=== PATIENT | male | born 1940 | race Caucasian/White ===

== ENCOUNTER 2019-10-04 23:17 | Inpatient (IN) ==
[2019-10-04] MEDS ORDERED: IOPAMIDOL 100 ML BOTTLE IV ONE (23:18)
--- NOTE | 2019-10-05 | Emergency Department Note ---
Syncope HPI - General Chief Complaint: Syncope Stated Complaint: syncope Time Seen by Provider: 10/04/19 23:27 Source: patient Mode of arrival: ambulatory Limitations: no limitations - History of Present Illness HPI Narrative: This 78-year-old male comes in accompanied by his , Karen, who reports that patient was headed to the bathroom and upon's trying to sit down fell forward with his head striking the tile on the floor of the shower in front of the toilet. He was weak and unable to get up from this which is unusual for him. Karen called EMS who transported the patient here. He was seen at [facility] today with a prescription for a decongestant medication. Patient in the emergency room seem to have some memory and conversation dysfunction. See below. REVIEW OF SYSTEMS: No fevers. Did have some chills this morning. No sweatiness. Some sore throat and runny nose that seems to be chronic No chest pain No shortness of breath No abdominal pain, nausea, vomiting No weakness No anxiety or depression. - Related Data Home Medications Medication Instructions Recorded Confirmed digoxin 250 mcg (0.25 mg) tablet 250 mcg PO .QTues, Mary, Sat, Sun 01/28/16 10/04/19 tab warfarin 1 tab PO QDAY 06/16/17 10/04/19 doxazosin 1 mg tablet 1 mg PO QHS tab 03/25/19 10/04/19 loratadine 10 mg tablet 10 mg PO QDAY 05/09/19 10/04/19 Previous Rx's Medication Instructions Recorded furosemide 40 mg tablet 40 mg PO QDAY #90 tab 06/14/16 allopurinol 100 mg tablet 100 mg PO QDAY #90 tab 05/07/19 omeprazole 20 mg capsule,delayed See Rx Instructions .ROUTE 05/07/19 release .COMPLEX #90 capsule diltiazem HCl 120 mg capsule,24 120 mg PO QDAY #90 cap 05/30/19 hr,extended release ropinirole 1 mg tablet 2 mg PO QHS #180 tab 08/23/19 enalapril maleate 20 mg tablet 40 mg PO QDAY #180 tab 09/24/19 [id number] 10 ml PO Q6H PRN #120 ml 10/04/19 2 mg-30 mg-10 mg/5 mL oral syrup fluticasone propionate 50 2 spray INTRANASAL QDAY #15.8 ml 10/04/19 mcg/actuation nasal spray,suspension Allergies Allergy/AdvReac Type Severity Reaction Status Date / Time No Known Drug Intolerances Allergy Unknown N/A Verified 10/04/19 13:09 Past Medical History - Past Medical History [facility] Narrative: Medical History (Last Updated 10/04/19 @ 23:36 by Patricio Briones DO) Long-term (current) use of anticoagulants (Chronic) Atrial fibrillation (Chronic) CHF (congestive heart failure) (Chronic) Ischemic cardiomyopathy (Chronic) CAD (coronary artery disease) (Chronic) Stroke (Chronic) PVD (peripheral vascular disease) (Chronic) Essential hypertension (Chronic) Hyperlipidemia (Chronic) Atherosclerosis (Chronic) Mitral valve disorders (Chronic) Polyuria (Chronic) Arthritis (Chronic) Gout (Chronic) Anemia (Chronic) Gastroesophageal reflux disease (Chronic) Urinary incontinence (Chronic) Rosacea (Chronic 12/23/13) Restless leg syndrome (Chronic) Prostate cancer (Chronic) Osteoarthritis (Chronic) Mitral valve disorders (Chronic) Inguinal hernia (Chronic) Hearing loss (Chronic) Goiter (Chronic) Edema (Chronic) Cataract (Chronic) Colloid thyroid nodule (Chronic) Anterior epistaxis (Resolved) Epistaxis (Resolved) Gout attack (Resolved) Night sweats (Resolved) Postural vertigo (Resolved) Shoulder pain, right (Resolved) Skin Lesion (Resolved) Supratherapeutic INR (Resolved) Warfarin-induced coagulopathy (Resolved) AC (acromioclavicular) arthritis (Inactive) Arthritis of shoulder region, right, degenerative (Inactive) Onychomycosis (Inactive 12/23/13) Seborrheic keratosis (Inactive) Past Surgical History (Last Reviewed 10/04/19 @ 13:51 by Henry Palmer PA-C) H/O inguinal hernia repair (Resolved) H/O mitral valve replacement (Resolved) H/O radical prostatectomy (Resolved) History of appendectomy (Resolved) History of colonoscopy (Resolved 02/05/13) History of excision of lesion (Resolved) History of tonsillectomy (Resolved) S/P CABG x 2 (Resolved) S/P thyroid biopsy (Resolved) Status post mitral valve annuloplasty (Resolved) Status post surgery (Resolved) Family History (Last Reviewed 10/04/19 @ 13:51 by Henry Palmer PA-C) Father Cardiac disease Mother Essential hypertension Unknown Chronic Kidney Disease Sister Malignant neoplasm of ovary Brother Malignant neoplasm of prostate Son Schizophrenia Medical history: Reports: atrial fibrillation, chronic anticoagulation, other (Anticoagulant use, arthrosclerosis, atrial fibrillation, cardiomyopathy, cataract, CHF, CAD, edema, epistaxis, goiter, hearing loss, inguinal hernia, hyperlipidemia, essential hypertension, mitral valve disorders, muscle spasm, onychomycosis, history of gastritis, PVD, prostate cancer, restless leg syndrome, rosacea, stroke, urinary incontinence, GERD, gout, anemia. ). Denies: DVT, DM, hypothyroidism, myocardial infarction, pulmonary embolus, renal disease Surgical history ED: Reports: other (recurrent procedures for epistaxis) - Social History smoking status: Never smoker Alcohol use: Reports: None Drug use: Reports: none. Denies: marijuana Physical Exam Limitations: no limitations General appearance: alert, in no apparent distress Head: normocephalic, other (Some small superficial but red abrasions around the face.) Eye: Present: PERRL, EOMI ENT: Present: normal exam, mucous membranes moist Neck: Present: trachea midline. Absent: lymphadenopathy, thyromegaly Chest: Present: symmetric chest wall rise Respiratory: Present: normal lung sounds bilaterally. Absent: respiratory distress, wheezes, stridor, accessory muscle use, prolonged expiratory phase Cardiovascular: Present: regular rate, normal rhythm. Absent: systolic murmur, diastolic murmur Abdominal: Present: soft. Absent: distention, tenderness, guarding, rebound, rigidity, organomegaly, mass Extremities: Absent: pedal edema, pretibial edema, calf tenderness Back: Absent: CVA tenderness (R), CVA tenderness (L), spinous process tenderness Neurological: Present: alert Patient oriented to: Present: person, place. Absent: time Speech: Present: other (Slowed and sometimes hesitating quite a bit before responding.) Cranial nerves: EOM function (II, III, IV, ): Normal, facial sensation (V): Normal, facial palsy (VII): Normal, tongue deviation (XII): Normal Cerebellar function: finger to nose: Normal, heel to shen: Normal Motor strength - LUE: 4/5 Motor strength - RUE: 4/5 Motor strength - LLE: 4/5 Motor strength - RLE: 4/5 Course Vital Signs Temperature 100.9 F H 10/04/19 23:17 Pulse Rate 83 10/04/19 23:17 Respiratory Rate 18 10/04/19 23:17 Pulse Oximetry (%) 93 10/04/19 23:17 Temperature 100.9 F H 10/04/19 23:17 Pulse Rate 83 10/04/19 23:17 Respiratory Rate 18 10/04/19 23:17 Pulse Oximetry (%) 93 10/04/19 23:17 Syncope - [facility] Narrative Medical decision making narrative: 11:35 PM - patient with a fall and on Coumadin. Necessitates work-up with labs and CT scan of the head. Because of some changes in apparent mental status a larger work-up in order. For example he times did not seem to be able to know the year, had slow recall of his address, did not remember his birthdate, could spell world forwards but not at all backwards and normally he would be able to do these things quite well according to his . She also believes he has been breathing a little faster these past few days. 12:16 AM - creatinine 1.6. His normal is 1.1, 1.2. We will proceed with CT angios of head and neck since the CT scan of his head was negative for intracranial bleed or injury. Specific gravity came back at 1.030 a few minutes after the above confirming some mild dehydration. 1:00 AM approximately - chest x-ray with enlarged (very) heart but there may be some rotation versus a perihilar dense pneumonia. 1:35 AM - white count 14.5 which is higher than usual for him. Hemoglobin 13.3 which is a mild anemia and new for him. INR is 2.0. Lactic acid 1.8. Sodium a little low at 130. Creatinine 1.6 with BUN 25 is higher than usual for him. Sodium is 130 which is also new. 2:01 AM - spoke with Dr. Vance, hospitalist, who kindly accepts this patient. I will write transition orders. I spoke with regarding patient's wishes for end-of-life care or if there were needing aggressive interventions to resuscitate or intervene and she reports that he does not want this. She is not certain of paperwork available. Patient is hard enough of hearing that it is difficult to communicate with him completely unwell plus he is sleeping well at this point in time so not further discussed but will list his wishes as DNR for now. - Lab Data Result diagrams: 10/04/19 23:43 10/04/19 23:43 Lab Results 10/04/19 10/04/19 10/04/19 Range/Units 23:43 23:43 23:43 WBC 14.5 H (4.50-11.00) K/mcL RBC 4.56 L (4.63-6.08) M/mcL Hgb 13.3 L (13.7-17.5) g/dL Hct 40.3 (40.1-51.0) % POC Hct (41.0-55.0) % MCV 88.4 (80.0-100.0) fL MCH 29.2 (26.0-34.0) pg MCHC 33.0 (31.0-36.0) g/dL RDW 13.9 (11.5-14.5) % Plt Count 175 (140-440) K/mcL MPV 10.8 H (7.4-10.4) fL Gran % 89.7 H (38.0-78.0) % Lymph % (Auto) 4.2 L (15.5-49.0) % [place] % (Auto) 5.4 (1.0-12.0) % Eos % (Auto) 0.3 (0.0-7.0) % Baso % (Auto) 0.4 (0.0-2.0) % Gran # 12.96 H (1.80-8.00) K/mcL Lymph # (Auto) 0.61 L (1.50-4.80) K/mcL [place] # (Auto) 0.78 (0.10-0.90) K/mcL Eos # (Auto) 0.04 (0.00-0.70) K/mcL Baso # (Auto) 0.06 (0.00-0.30) K/mcL POC PT (11.9-14.5) sec PT (11.9-14.5) sec POC INR (0.9-1.2) INR (0.9-1.1) VBG Lactic Acid 1.8 (0.5-2.0) mmol/L POC Sodium (133-145) mmol/L Sodium 130 L (133-145) mmol/L POC Potassium (3.3-5.1) mmol/L Potassium 4.2 (3.3-5.1) mmol/L POC Chloride (96-108) mmol/L Chloride 95 L (96-108) mmol/L Carbon Dioxide 21 L (22-30) mmol/L POC Total CO2 (22-30) mmol/L Anion Gap 14.0 (8-16) POC BUN (8-23) mg/dl BUN 25 H (8-23) mg/dl Creatinine 1.6 H (0.7-1.2) mg/dl POC Creatinine (0.7-1.2) mg/dl GFR Calculation 40 Glucose 130 H (70-105) mg/dL POC Glucose (70-105) mg/dL Calcium 8.3 L (8.6-10.4) mg/dl POC WB Ioniz Calcium (1.16-1.32) mmol/L Magnesium 1.6 (1.6-2.5) mg/dL Total Bilirubin 0.8 (0.0-1.0) mg/dL AST 13 (0-37) U/l ALT 8 (0-40) U/l Alkaline Phosphatase 95 (39-117) U/L C-Reactive Protein 5.7 H (0.0-0.8) mg/dl Total Protein 6.7 (5.9-8.4) gm/dL Albumin 4.1 (3.2-5.2) gm/dL Globulin 2.6 (2.2-3.7) gm/dL Albumin/Globulin Ratio 1.6 (1.0-2.3) Urine Color Urine Appearance Urine pH (5.0-9.0) Ur Specific Gideon (1.000-1.035) Urine Protein (NEG) mg/dL Urine Glucose (UA) (NEG) mg/dL Urine Ketones (NEG) mg/dL Urine Occult Blood (<0.03) mg/dL Urine Nitrate (NEG) Urine Bilirubin (NEG) mg/dL Urine Urobilinogen (NEG) mg/dL Ur Leukocyte Esterase (NEG) /uL Urine RBC (0-1) /hpf Urine WBC (0-4) /hpf Ur Squamous Epith Cells (0-4) /hpf Urine Bacteria (0) /hpf Hyaline Casts (0-2) /lpf Urine Mucus (0) /hpf Digoxin Dose Digox Last Dose Time 10/04/19 10/04/19 10/04/19 Range/Units 23:43 23:43 23:52 WBC (4.50-11.00) K/mcL RBC (4.63-6.08) M/mcL Hgb (13.7-17.5) g/dL Hct (40.1-51.0) % POC Hct (41.0-55.0) % MCV (80.0-100.0) fL MCH (26.0-34.0) pg MCHC (31.0-36.0) g/dL RDW (11.5-14.5) % Plt Count (140-440) K/mcL MPV (7.4-10.4) fL Gran % (38.0-78.0) % Lymph % (Auto) (15.5-49.0) % [place] % (Auto) (1.0-12.0) % Eos % (Auto) (0.0-7.0) % Baso % (Auto) (0.0-2.0) % Gran # (1.80-8.00) K/mcL Lymph # (Auto) (1.50-4.80) K/mcL [place] # (Auto) (0.10-0.90) K/mcL Eos # (Auto) (0.00-0.70) K/mcL Baso # (Auto) (0.00-0.30) K/mcL POC PT 28.9 H (11.9-14.5) sec PT 22.4 H (11.9-14.5) sec POC INR 2.5 H (0.9-1.2) INR 2.0 H (0.9-1.1) VBG Lactic Acid (0.5-2.0) mmol/L POC Sodium (133-145) mmol/L Sodium (133-145) mmol/L POC Potassium (3.3-5.1) mmol/L Potassium (3.3-5.1) mmol/L POC Chloride (96-108) mmol/L Chloride (96-108) mmol/L Carbon Dioxide (22-30) mmol/L POC Total CO2 (22-30) mmol/L Anion Gap (8-16) POC BUN (8-23) mg/dl BUN (8-23) mg/dl Creatinine (0.7-1.2) mg/dl POC Creatinine (0.7-1.2) mg/dl GFR Calculation Glucose (70-105) mg/dL POC Glucose (70-105) mg/dL Calcium (8.6-10.4) mg/dl POC WB Ioniz Calcium (1.16-1.32) mmol/L Magnesium (1.6-2.5) mg/dL Total Bilirubin (0.0-1.0) mg/dL AST (0-37) U/l ALT (0-40) U/l Alkaline Phosphatase (39-117) U/L C-Reactive Protein (0.0-0.8) mg/dl Total Protein (5.9-8.4) gm/dL Albumin (3.2-5.2) gm/dL Globulin (2.2-3.7) gm/dL Albumin/Globulin Ratio (1.0-2.3) Urine Color Urine Appearance Urine pH (5.0-9.0) Ur Specific Gideon (1.000-1.035) Urine Protein (NEG) mg/dL Urine Glucose (UA) (NEG) mg/dL Urine Ketones (NEG) mg/dL Urine Occult Blood (<0.03) mg/dL Urine Nitrate (NEG) Urine Bilirubin (NEG) mg/dL Urine Urobilinogen (NEG) mg/dL Ur Leukocyte Esterase (NEG) /uL Urine RBC (0-1) /hpf Urine WBC (0-4) /hpf Ur Squamous Epith Cells (0-4) /hpf Urine Bacteria (0) /hpf Hyaline Casts (0-2) /lpf Urine Mucus (0) /hpf Digoxin Dose Not Reportable Digox Last Dose Time Not Reportable 10/04/19 10/05/19 Range/Units 23:59 00:18 WBC (4.50-11.00) K/mcL RBC (4.63-6.08) M/mcL Hgb (13.7-17.5) g/dL Hct (40.1-51.0) % POC Hct 40.0 L (41.0-55.0) % MCV (80.0-100.0) fL MCH (26.0-34.0) pg MCHC (31.0-36.0) g/dL RDW (11.5-14.5) % Plt Count (140-440) K/mcL MPV (7.4-10.4) fL Gran % (38.0-78.0) % Lymph % (Auto) (15.5-49.0) % [place] % (Auto) (1.0-12.0) % Eos % (Auto) (0.0-7.0) % Baso % (Auto) (0.0-2.0) % Gran # (1.80-8.00) K/mcL Lymph # (Auto) (1.50-4.80) K/mcL [place] # (Auto) (0.10-0.90) K/mcL Eos # (Auto) (0.00-0.70) K/mcL Baso # (Auto) (0.00-0.30) K/mcL POC PT (11.9-14.5) sec PT (11.9-14.5) sec POC INR (0.9-1.2) INR (0.9-1.1) VBG Lactic Acid (0.5-2.0) mmol/L POC Sodium 133 (133-145) mmol/L Sodium (133-145) mmol/L POC Potassium 4.5 (3.3-5.1) mmol/L Potassium (3.3-5.1) mmol/L POC Chloride 101 (96-108) mmol/L Chloride (96-108) mmol/L Carbon Dioxide (22-30) mmol/L POC Total CO2 22 (22-30) mmol/L Anion Gap (8-16) POC BUN 26 H (8-23) mg/dl BUN (8-23) mg/dl Creatinine (0.7-1.2) mg/dl POC Creatinine 1.6 H (0.7-1.2) mg/dl GFR Calculation Glucose (70-105) mg/dL POC Glucose 122 H (70-105) mg/dL Calcium (8.6-10.4) mg/dl POC WB Ioniz Calcium 1.06 L (1.16-1.32) mmol/L Magnesium (1.6-2.5) mg/dL Total Bilirubin (0.0-1.0) mg/dL AST (0-37) U/l ALT (0-40) U/l Alkaline Phosphatase (39-117) U/L C-Reactive Protein (0.0-0.8) mg/dl Total Protein (5.9-8.4) gm/dL Albumin (3.2-5.2) gm/dL Globulin (2.2-3.7) gm/dL Albumin/Globulin Ratio (1.0-2.3) Urine Color Yellow Urine Appearance Clear Urine pH 5.0 (5.0-9.0) Ur Specific Gideon 1.015 (1.000-1.035) Urine Protein Neg (NEG) mg/dL Urine Glucose (UA) Negative (NEG) mg/dL Urine Ketones Neg (NEG) mg/dL Urine Occult Blood Neg (<0.03) mg/dL Urine Nitrate Neg (NEG) Urine Bilirubin Neg (NEG) mg/dL Urine Urobilinogen Neg (NEG) mg/dL Ur Leukocyte Esterase Neg (NEG) /uL Urine RBC 1 (0-1) /hpf Urine WBC < 1 (0-4) /hpf Ur Squamous Epith Cells 0 (0-4) /hpf Urine Bacteria 0 (0) /hpf Hyaline Casts 31 H (0-2) /lpf Urine Mucus Mod (0) /hpf Digoxin Dose Digox Last Dose Time Disposition Pt seen by CONTINUOUS IMPROVEMENT FACILITATOR/PA only: No Clinical Impression: Hypoxia, Abnormal chest x-ray, Abrasion, face w/o infection, Ventricular bige stefania Fever Qualifiers: Fever type: unspecified Qualified Code(s): R50.9 - Fever, unspecified Leukocytosis Qualifiers: Leukocytosis type: leukemoid reaction Qualified Code(s): D72.823 - Leukemoid reaction Fall Qualifiers: Encounter type: initial encounter Qualified Code(s): W19.XXXA - Unspecified fall, initial encounter Atrial fibrillation Qualifiers: Atrial fibrillation type: longstanding persistent Qualified Code(s): I48.11 - Longstanding persistent atrial fibrillation Disposition: Xfer As Inpt ([facility]) Condition: Fair Referrals: Jarvis Miramontes MD, FAAFP [Primary Care Provider] -
[2019-10-05 00:11] LABS: POC INR 2.5 (0.9-1.2); POC Pro Time 28.9 sec (11.9-14.5)
[2019-10-05 00:12] LABS: POC Blood Urea Nitrogen 26 mg/dl (8-23); POC CO2 22 mmol/L (22-30); POC Calcium, Ionized 1.06 mmol/L (1.16-1.32); POC Chloride 101 mmol/L (96-108); POC Creatinine 1.6 mg/dl (0.7-1.2); POC Glucose, Random 122 mg/dL (70-105); POC Potassium 4.5 mmol/L (3.3-5.1); POC Sodium 133 mmol/L (133-145)
[2019-10-05 01:10] LABS: Appearance,Urine CLEAR; Bacteria,Urine 0 /hpf (0); Bilirubin,Urine NEG (NEG); Color,Urine YELLOW; Glucose,Urine (UA) NEGATIVE (NEG); Ketones,Urine NEG (NEG); Leukocyte Esterase,Urine NEG /uL (NEG); Mucus,Urine MOD /hpf (0); Nitrate,Urine NEG (NEG); Protein,Urine NEG (NEG); Specific Gravity,Urine 1.015 (1.000-1.035); Urine Blood NEG mg/dL (<0.03); Urine Hyaline Cast 31 /lpf (0-2); Urine RBC 1 /hpf (0-1); Urine Squamous Epithelial Cell 0 /hpf (0-4); Urine WBC < 1 /hpf (0-4); Urobilinogen,Urine NEG (NEG)
[2019-10-05 01:16] LABS: Basophils # (Auto) 0.06 K/mcL (0.00-0.30); Basophils % (Auto) 0.4 % (0.0-2.0); Eosinophils # (Auto) 0.04 K/mcL (0.00-0.70); Eosinophils % (Auto) 0.3 % (0.0-7.0); Granulocytes % (Auto) 89.7 % (38.0-78.0); Hematocrit 40.3 % (40.1-51.0); Hemoglobin 13.3 g/dL (13.7-17.5); Lymphocytes # (Auto) 0.61 K/mcL (1.50-4.80); Lymphocytes % (Auto) 4.2 % (15.5-49.0); Mean Cell Volume 88.4 fL (80.0-100.0); Mean Platelet Volume 10.8 fL (7.4-10.4); Monocytes # (Auto) 0.78 K/mcL (0.10-0.90); Monocytes % (Auto) 5.4 % (1.0-12.0); Platelet Count 175 K/mcL (140-440); Prothrombin Time 22.4 sec (11.9-14.5); RBC 4.56 M/mcL (4.63-6.08); Red Cell Distribution Width 13.9 % (11.5-14.5); WBC 14.5 K/mcL (4.50-11.00)
[2019-10-05 01:26] LABS: ALT/SGPT 8 U/l (0-40); AST/SGOT 13 U/l (0-37); Albumin 4.1 gm/dL (3.2-5.2); Albumin/Globulin Ratio 1.6 (1.0-2.3); Alkaline Phosphatase 95 U/L (39-117); Bilirubin,Total 0.8 mg/dL (0.0-1.0); Blood Urea Nitrogen 25 mg/dl (8-23); C-Reactive Protein 5.7 mg/dl (0.0-0.8); Calcium 8.3 mg/dl (8.6-10.4); Carbon Dioxide 21 mmol/L (22-30); Chloride 95 mmol/L (96-108); Globulin 2.6 gm/dL (2.2-3.7); Glomerular Filtration Rate 40; Glucose 130 mg/dL (70-105)
[2019-10-05] MEDS ORDERED: ONDANSETRON 4 MG/2 ML VIAL IV PRN ×4 (01:57→22:32)
[2019-10-05] MEDS ORDERED: 0.9 % SODIUM CHLORIDE 1,000 ML IV SCH ×2 (02:00→08:34)
[2019-10-05] MEDS ORDERED: cefTRIAXone 2 GM in DEXTROSE 5% IN WATER 50 ML IV ONE (02:02)
[2019-10-05] MEDS ORDERED: AZITHROMYCIN 500 MG in DEXTROSE 5% IN WATER 250 ML IV ONE (02:02)
[2019-10-05] MEDS ORDERED: cefTRIAXone 2 GM VIAL ONE (03:06)
--- NOTE | 2019-10-05 04:12 | XRay Report ---
CLINICAL INFORMATION: syncope COMPARISON: None. FINDINGS: Moderate cardiomegaly with left atrial enlargement and mitral annuloplasty again noted. Heart has increased in size from previous exam. Mediastinum is unremarkable. Upper lobe pulmonary vessels are mildly distended but there is no interstitial edema. Lungs are clear. No effusions IMPRESSION: Mild CHF Interpreted and Authenticated by: Jamshid Hilliard 10/05/19
--- NOTE | 2019-10-05 04:21 | Cat Scan Report ---
CLINICAL INFORMATION: On anticoagulation - trauma fall COMPARISON: None. TECHNIQUE: 2.5 mm helical slices were obtained in the skull base to vertex. Following reconstruction, axial reformatted images were reviewed at bone and parenchymal windows. The exam was performed using radiation dose optimization techniques including, but not limited to, automated exposure control, adjustment of the mA and/or kV according to patient size and use of iterative reconstruction technique. FINDINGS: The ventricles, sulci, fissures, and cisterns are symmetrically enlarged compatible with expected mild age-related atrophy. No extra-axial fluid collections are identified. Patchy age-related chronic ischemic changes in the cerebral white matter appreciated. The cerebrum, brainstem and cerebellum are, otherwise, unremarkable. There is no evidence of hemorrhage, mass effect, or edema. Bone windows show no osseous abnormality. IMPRESSION: Mild atrophy and patchy age-related chronic ischemic changes in the deep cerebral white matter. There is no intracerebral hemorrhage or other posttraumatic change. Interpreted and Authenticated by: Jamshid Hilliard 10/05/19
--- NOTE | 2019-10-05 06:20 | Cat Scan Report ---
CLINICAL INFORMATION: Trauma COMPARISON: None. TECHNIQUE: 80 cc of Isovue-370 were injected intravenously, and using SmartPrep to maximize arterial opacification, 0.625 mm helical slices were obtained from the thoracic aortic arch through the galena of [place]. Following reconstruction, 2.5mm sagittal, coronal and axial reformatted images were processed and reviewed at standard and bone algorithm/window. 3-D volume rendered, CPR and MIP images were processed using a [employer] work station.The exam was performed using radiation dose optimization techniques including, but not limited to, automated exposure control, adjustment of the mA and/or kV according to patient size and use of iterative reconstruction technique. Note: Exam quality is poor due to left arm injection and extrinsic compression of the left brachycephalic vein between the head of the clavicle and thoracic aortic arch. Nearly entire contrast bolus refluxes into the left jugular and thoracic veins rather than filling the superior vena cava and right heart. There is no arterial opacification. FINDINGS: The diameter and contour of the thoracic aortic arch brachycephalic common internal and external carotid vertebral arteries are normal, but there are nonopacified, thus stenosis or occlusion cannot be assessed with this particular study. Soft tissues show mild thyroid enlargement with inhomogeneity compatible with thyroid goiter. No other soft tissue abnormality. IMPRESSION: 1. Thoracic aortic arch brachycephalic carotid and vertebral artery are normal in diameter and contour. Lack of arterial contrast precludes ability to assess for occlusion or stenosis. The exam can be repeated with the right arm injection. Interpreted and Authenticated by: Jamshid Hilliard 10/05/19
--- NOTE | 2019-10-05 06:21 | Cat Scan Report ---
CLINICAL INFORMATION: Trauma decreased mental status. COMPARISON: None. TECHNIQUE: 80 cc of Isovue-370 were injected intravenously , and using SmartPrep to maximize cerebral arterial opacification, 0.625 mm helical slices were obtained from the skull base through the cerebral vertex. Following reconstruction , sagittal, coronal and axial reformatted images were processed and reviewed at multiple windows and levels. 3D volume rendered and MIP images were acquired at a independent workstation. The exam was performed using radiation dose optimization techniques including, but not limited to, automated exposure control, adjustment of the mA and/or kV according to patient size and use of iterative reconstruction technique. Very poor arterial bolus is noted due to left arm injection and extrinsic compression of the left brachycephalic vein between the medial clavicle and thoracic aortic arch. Consider repeating the exam with right arm injection. FINDINGS: The intracerebral arterial vasculature is only faintly opacified. The intracranial internal carotid vertebral basilar anterior middle and posterior areas cerebral arteries are grossly normal. IMPRESSION: Suboptimal quality exam no gross abnormality. Consider repeat study with right arm injection Interpreted and Authenticated by: Jamshid Hilliard 10/05/19
[2019-10-05] MEDS ORDERED: OMEPRAZOLE 20 MG CAPSULE PO SCH (07:30)
[2019-10-05] MEDS: ACETAMINOPHEN 325 MG TABLET PO PRN ×2 (08:04→16:57)
[2019-10-05] MEDS ORDERED: hydrALAZINE 20 MG/ML VIAL IV PRN ×2 (08:30→22:32)
[2019-10-05] MEDS ORDERED: ACETAMINOPHEN 650 MG/65 ML BOTTLE IV PRN ×2 (08:30→22:32)
[2019-10-05] MEDS ORDERED: MELATONIN 3 MG TABLET PO PRN ×2 (08:30→22:32)
[2019-10-05] MEDS ORDERED: POLYETHYLENE GLYCOL 3350 17 GM PACKET PO PRN ×2 (08:30→22:32)
[2019-10-05] MEDS ORDERED: METOPROLOL TARTRATE 5 MG/5 ML VIAL IV PRN ×2 (08:30→22:32)
[2019-10-05] MEDS ORDERED: BISACODYL 10 MG SUPP.RECT PR PRN ×2 (08:30→22:32)
[2019-10-05] MEDS ORDERED: POTASSIUM CHLORIDE 20 MEQ PACKET PO PRN ×2 (08:30→22:32)
[2019-10-05] MEDS ORDERED: MAGNESIUM SULFATE 2 GM/50 ML BAG IV PRN ×2 (08:30→22:32)
[2019-10-05] MEDS ORDERED: ACETAMINOPHEN 325 MG TABLET PO PRN ×3 (08:30→22:32)
[2019-10-05] MEDS ORDERED: ONDANSETRON 4 MG ODT TABLET SL PRN ×2 (08:30→22:32)
--- NOTE | 2019-10-05 08:40 | Internal Med History&Physical ---
Medical - H&P: HPI Patient information: Note initiated : 10/05/19 at 8:36 am Service Date, if different from initiated Date: [] Patient: Gian Orozco a 78 y/o M admitted on 10/05/19 for syncope. Chief Complaint: [] Chief complaint: Weakness fatigue loss of consciousness History of present illness: Mr. Orozco is a 78 year old M with a known history of CABGsMVR/A. fib who was in his baseline state of health until 3 days prior to presentation patient started noticing increasing weakness fatigue, sore throat and upper respiratory symptoms. He was evaluated at the urgent care and was discharged after supportive treatment. Patient symptoms continue to deteriorate. His heard him falling in the bathroom and discovered him in a near unconscious state. He was subsequently brought into the ER. Initial work-up was unremarkable CT angiogram head neck but consistent with elevated white count fever and possible pneumonia. Chest x-ray consistent with CHF Hospitalist service was consulted At the time evaluation patient is alert and oriented. He was able to answer most the question. Karen is at bedside. She was able to provide a detailed history. Patient is hard of hearing. He endorses to malaise/mild headache fatigue and lethargic. He further endorses to diarrhea but denies chest pain, cough. He denies lightheadedness. He further denies changes in medication or sick contact. Review of systems A 10 point review system was performed and is negative except for ones cussed above Medical - H&P: PMH Medical history: Shoulder pain, right (Resolved) Arthritis (Chronic) Gout attack (Chronic) Supratherapeutic INR (Resolved) Anterior epistaxis (Resolved) Warfarin-induced coagulopathy (Chronic) Encounter for removal of nasal packing (Resolved) Arthritis of shoulder region, right, degenerative (Chronic) AC (acromioclavicular) arthritis (Chronic) Gout (Chronic) Postural vertigo (Chronic) occasional Anemia (Chronic) H/O Skin Lesion (Chronic) recurring left upper lip lesion Gastroesophageal reflux disease (Chronic) Urinary incontinence (Chronic) Secondary to prostatectomy Stroke (Chronic) Remote Rosacea (Chronic 12/23/13) Restless leg syndrome (Chronic) Prostate cancer (Chronic) Remote. PSA <0.03 PVD (peripheral vascular disease) (Chronic) Osteoarthritis (Chronic) Onychomycosis (Chronic 12/23/13) Muscle spasm (Chronic) paracervical musculature Mitral valve disorders (Chronic) Essential hypertension (Chronic) Hyperlipidemia (Chronic) Inguinal hernia (Chronic) Asymptomatic left inguinal hernia. Previous surgery for right inguinal hernia. Hearing loss (Chronic) Goiter (Chronic) History of goiter. Right hemithyroid is quite prominent. Epistaxis (Chronic) resolved after cauterization Edema (Chronic) mild CAD (coronary artery disease) (Chronic) CABG 2006 CHF (congestive heart failure) (Chronic) Stable at present Cataract (Chronic) Cardiomyopathy (Chronic) ischemic Atrial fibrillation (Chronic) Atherosclerosis (Chronic) (01/23/2015-Atherosclerotic plaque) Long-term (current) use of anticoagulants (Chronic) Colloid thyroid nodule (Chronic) 10/15/2018 FNA Surgical History H/O inguinal hernia repair (Resolved) 04/28 right H/O mitral valve replacement (Resolved) H/O radical prostatectomy (Resolved) 2009 History of appendectomy (Resolved) History of colonoscopy (Resolved 02/05/13) Consult Findings: Colonic polyp; Micro: Polypoid portion of colonic mucosa with hyperplastic surface changes-10 year follow up. History of excision of lesion (Resolved) Rt cheek lesion History of tonsillectomy (Resolved) S/P CABG x 2 (Resolved) S/P thyroid biopsy (Resolved) Status post mitral valve annuloplasty (Resolved) Previous mitral valve ring annuloplasty Status post surgery (Resolved) Ankle surgery Family History Father , at age 86 Cardiac disease Mother , at age 88 Essential hypertension Unknown Chronic Kidney Disease Sister Malignant neoplasm of ovary Brother Malignant neoplasm of prostate Son Schizophrenia sons x2 Social History marital status: occupational status: retired occupation: Teacher other: Children-4 smoking status: Never smoker alcohol intake frequency: former alcohol drinker Medical - H&P: Meds Home Medications Medication Instructions Recorded Confirmed Type digoxin 250 mcg (0.25 mg) tablet 250 mcg PO .QTues, Mary, Sat, Sun 01/28/16 10/04/19 History tab furosemide 40 mg tablet 40 mg PO QDAY #90 tab 06/14/16 10/04/19 Rx warfarin 1 tab PO QDAY 06/16/17 10/04/19 History doxazosin 1 mg tablet 1 mg PO QHS tab 03/25/19 10/04/19 History allopurinol 100 mg tablet 100 mg PO QDAY #90 tab 05/07/19 10/04/19 Rx omeprazole 20 mg capsule,delayed See Rx Instructions .ROUTE 05/07/19 10/04/19 Rx release .COMPLEX #90 capsule loratadine 10 mg tablet 10 mg PO QDAY 05/09/19 10/04/19 History diltiazem HCl 120 mg capsule,24 120 mg PO QDAY #90 cap 05/30/19 10/04/19 Rx hr,extended release ropinirole 1 mg tablet 2 mg PO QHS #180 tab 08/23/19 10/04/19 Rx enalapril maleate 20 mg tablet 40 mg PO QDAY #180 tab 09/24/19 10/04/19 Rx gbpznteqirpndfr-gqfincubimszotu-RR 10 ml PO Q6H PRN #120 ml 10/04/19 10/04/19 Rx 2 mg-30 mg-10 mg/5 mL oral syrup fluticasone propionate 50 2 spray INTRANASAL QDAY #15.8 ml 10/04/19 10/04/19 Rx mcg/actuation nasal spray,suspension Allergies Allergy/AdvReac Type Severity Reaction Status Date / Time No Known Drug Intolerances Allergy Unknown N/A Verified 10/04/19 13:09 Medical - H&P: Exam - Constitutional Vitals: Temp Pulse Resp BP Pulse Ox 102.4 F H 73 46 H 127/61 91 10/05/19 08:04 10/05/19 08:00 10/05/19 08:00 10/05/19 08:00 10/05/19 08:00 General appearance: no acute distress Exam: Alert oriented Head normocephalic, forehead abrasion from fall Oral cavity dry no ear nose discharge Neck lymphadenopathy S1-S2 irregular rhythm, pansystolic murmur grade 2 Diminished breath sounds bases Abdomen soft nontender lower extremity no cyanosis clubbing no joint swelling Skin no suspicious lesion psych alert cooperative Neuro nonfocal Medical - H&P: Reslt - Labs CBC & Chem 7: 10/04/19 23:43 10/04/19 23:43 Labs: Short CBC 10/04/19 Range/Units 23:43 WBC 14.5 H (4.50-11.00) K/mcL Hgb 13.3 L (13.7-17.5) g/dL Hct 40.3 (40.1-51.0) % Plt Count 175 (140-440) K/mcL BMP 10/04/19 23:43 Sodium 130 L Potassium 4.2 Chloride 95 L Carbon Dioxide 21 L BUN 25 H Creatinine 1.6 H Glucose 130 H Calcium 8.3 L Liver Function 10/04/19 Range/Units 23:43 Total Bilirubin 0.8 (0.0-1.0) mg/dL AST 13 (0-37) U/l ALT 8 (0-40) U/l Alkaline Phosphatase 95 (39-117) U/L Albumin 4.1 (3.2-5.2) gm/dL Urine 10/05/19 Range/Units 00:18 Urine Color Yellow Urine Appearance Clear Urine pH 5.0 (5.0-9.0) Ur Specific [place] 1.015 (1.000-1.035) Urine Protein Neg (NEG) mg/dL Urine Glucose (UA) Negative (NEG) mg/dL Medical - H&P: A/P (1) Acute decompensated heart failure Current visit: Yes Status: Acute * Sepsis secondary to acute acquired pneumonia, white count 14,000. Continue antibiotic coverage/management per guidelines. Check respiratory panel * Lrruroaxm-vbkjvnkdh-gkcvjcvk, pancultures, antibiotic coverage/supplemental oxygen bronchodilators. Check viral respiratory panel * Acute decompensated heart failure, diastolic dysfunction secondary underlying A. fib, evident on imaging, initiate diuresis * Diarrhea-check stool C. difficile * History atrial fibrillation currently rate controlled. Continue digoxin/diltiazem * Hypertension continue ARB/diltiazem * Restless leg syndrome continue ropinirole * Anticoagulation on Coumadin daily dosing based on INR * History of gout continue allopurinol * GERD continue PPI * DNR * Prophylaxis anticoagulated Plan * Inpatient telemetry admit, anticipate minimum 2 midnight hospitalization * Antibiotic coverage * Viral respiratory panel * Echocardiogram/diuresis * Stool C. difficile * Pre-existing well condition management on home medications * PT OT * Nutrition support Medical - H&P: Qual - VTE Deep Vein Thrombosis/Pulmonary Embolism Present on Admission: No
[2019-10-05] MEDS ORDERED: THIAMINE 100 MG TABLET PO SCH (09:00)
[2019-10-05] MEDS ORDERED: FOLIC ACID 1 MG TABLET PO SCH (09:00)
[2019-10-05] MEDS ORDERED: ALLOPURINOL 100 MG TABLET PO SCH (09:00)
[2019-10-05] MEDS ORDERED: FLUTICASONE PROPIONATE SPRAY.NAS NS PRN ×2 (09:00→22:32)
[2019-10-05] MEDS ORDERED: LISINOPRIL 20 MG TABLET PO SCH (09:00)
[2019-10-05] MEDS ORDERED: DILTIAZEM 120 MG CAP.XL.24H PO SCH (09:00)
[2019-10-05] MEDS ORDERED: LORATADINE 10 MG TABLET PO SCH (09:00)
[2019-10-05] MEDS ORDERED: MULTIVIT,THER IRON,CA,FA & MIN 1 TABLET PO SCH (09:00)
[2019-10-05] MEDS: DOCUSATE SODIUM 100 MG CAPSULE PO SCH ×2 (09:57→20:02)
[2019-10-05] MEDS: HEPARIN 5,000 UNIT/ML VIAL SQ SCH ×2 (09:59→20:02)
--- NOTE | 2019-10-05 11:15 | Ultrasound Report ---
CLINICAL INFORMATION: Syncope COMPARISON: None. TECHNIQUE: Spectral Doppler velocity measurements were obtained in the proximal, mid and distal common and internal carotid, both vertebral and proximal external carotid arteries bilaterally. Supplemental color and power Doppler imaging was also obtained to optimize stenosis detection. In reporting, any internal carotid stenosis was indirectly quantified comparing the distal internal carotid velocity. For ratio comparison, the internal carotid artery, at the level of stenosis, was utilized in the numerator and the normal distal internal carotid artery velocity was utilized as the denominator. Velocities are validated with angiographic measurements extrapolated from diameter data - as defined by the Society of Radiologists in Ultrasound Consensus Conference .Radiology 2003; 229; 340 - 346. FINDINGS: See worksheet by the technologist for velocities in PACS IMPRESSION: The right common, internal and external carotid arteries are widely patent. 50-70% stenosis of the proximal left internal carotid artery. The left common and external carotid arteries are widely patent. Antegrade flow present in both vertebral arteries Please correlate with CTA CT Angiography or MRA MR Angiography if surgery is contemplated. Interpreted and Authenticated by: Jamshid Hilliard 10/05/19
[2019-10-05 11:19] LABS: INR 2.1 (0.9-1.1); Prothrombin Time 23.1 sec (11.9-14.5)
[2019-10-05] MEDS: 0.9 % SODIUM CHLORIDE 10 ML SYRINGE IV SCH ×2 (13:45→20:02)
[2019-10-05] MEDS ORDERED: WARFARIN 1 MG TABLET PO ONE (14:00)
[2019-10-05] MEDS ORDERED: DIGOXIN 125 MCG TABLET PO SCH (14:00)
[2019-10-05] MEDS ORDERED: FUROSEMIDE 40 MG/4 ML VIAL IV SCH (16:00)
[2019-10-05] MEDS ORDERED: cefTRIAXone 2 GM in DEXTROSE 5% IN WATER 50 ML IV SCH (18:00)
[2019-10-05] MEDS ORDERED: AZITHROMYCIN 500 MG in DEXTROSE 5% IN WATER 250 ML IV SCH (19:00)
[2019-10-05] MEDS ORDERED: rOPINIRole 1 MG TABLET PO SCH (21:00)
[2019-10-05] MEDS ORDERED: SENNOSIDES/DOCUSATE SODIUM 1 TAB TABLET PO SCH (21:00)
[2019-10-05] MEDS ORDERED: DOXAZOSIN 1 MG TABLET PO SCH (21:00)
[2019-10-05] MEDS ORDERED: 0.9 % SODIUM CHLORIDE 1,000 ML IV ONE ×3 (22:01→22:32)
[2019-10-05] MEDS ORDERED: LACTATED RINGERS 1,000 ML IV SCH (22:15)
[2019-10-05] MEDS ORDERED: NOREPINEPHRINE BITARTRATE 16 MG in 0.9 % SODIUM CHLORIDE 234 ML IV SCH (22:32)
[2019-10-05] MEDS ORDERED: ATROPINE SULFATE 1 MG/10 ML SYRINGE IV ONE (22:32)
[2019-10-05] MEDS ORDERED: NOREPINEPHRINE BITARTRATE 4 MG/4 ML VIAL IV ONE (22:47)
[2019-10-05 23:41] LABS: Basophils # (Auto) 0.06 K/mcL (0.00-0.30); Basophils % (Auto) 0.5 % (0.0-2.0); Eosinophils # (Auto) 0.02 K/mcL (0.00-0.70); Eosinophils % (Auto) 0.2 % (0.0-7.0); Granulocytes % (Auto) 85.4 % (38.0-78.0); Hematocrit 39.3 % (40.1-51.0); Hemoglobin 12.9 g/dL (13.7-17.5); Lymphocytes # (Auto) 1.01 K/mcL (1.50-4.80); Lymphocytes % (Auto) 7.7 % (15.5-49.0); Mean Cell Volume 89.9 fL (80.0-100.0); Mean Corpuscular HGB Conc 32.8 g/dL (31.0-36.0); Mean Platelet Volume 10.4 fL (7.4-10.4); Monocytes # (Auto) 0.82 K/mcL (0.10-0.90); Monocytes % (Auto) 6.2 % (1.0-12.0); Platelet Count 159 K/mcL (140-440); RBC 4.37 M/mcL (4.63-6.08); Red Cell Distribution Width 14.1 % (11.5-14.5); WBC 13.2 K/mcL (4.50-11.00)
[2019-10-06 00:04] LABS: ALT/SGPT 12 U/l (0-40); AST/SGOT 31 U/l (0-37); Albumin 3.3 gm/dL (3.2-5.2); Albumin/Globulin Ratio 1.2 (1.0-2.3); Alkaline Phosphatase 82 U/L (39-117); Bilirubin,Direct < 0.2 mg/dL (0.0-0.3); Bilirubin,Total 0.3 mg/dL (0.0-1.0); Blood Urea Nitrogen 30 mg/dl (8-23); Calcium 7.8 mg/dl (8.6-10.4); Carbon Dioxide 20 mmol/L (22-30); Chloride 96 mmol/L (96-108); Globulin 2.8 gm/dL (2.2-3.7); Glomerular Filtration Rate 29; Glucose 134 mg/dL (70-105); Lactate Dehydrogenase 196 U/L (94-250); Phosphorous 3.9 mg/dL (2.7-4.5); Triglycerides 96 mg/dl (<150)
[2019-10-06] MEDS: LACTATED RINGERS 1,000 ML IV SCH ×4 (00:31→22:07)
[2019-10-06 06:24] LABS: Hematocrit 38.1 % (40.1-51.0); Hemoglobin 12.4 g/dL (13.7-17.5); Mean Cell Volume 89.9 fL (80.0-100.0); Mean Corpuscular HGB Conc 32.5 g/dL (31.0-36.0); Mean Platelet Volume 10.8 fL (7.4-10.4); Platelet Count 150 K/mcL (140-440); RBC 4.24 M/mcL (4.63-6.08); Red Cell Distribution Width 14.1 % (11.5-14.5); WBC 9.7 K/mcL (4.50-11.00)
[2019-10-06 06:48] LABS: INR 2.3 (0.9-1.1); Prothrombin Time 24.8 sec (11.9-14.5)
[2019-10-06 07:07] LABS: ALT/SGPT 11 U/l (0-40); AST/SGOT 29 U/l (0-37); Albumin 2.9 gm/dL (3.2-5.2); Alkaline Phosphatase 75 U/L (39-117); Bilirubin,Direct < 0.2 mg/dL (0.0-0.3); Bilirubin,Total 0.3 mg/dL (0.0-1.0); Blood Urea Nitrogen 30 mg/dl (8-23); Calcium 7.4 mg/dl (8.6-10.4); Carbon Dioxide 18 mmol/L (22-30); Chloride 101 mmol/L (96-108); Globulin 2.9 gm/dL (2.2-3.7); Glomerular Filtration Rate 37; Glucose 99 mg/dL (70-105); Lactate Dehydrogenase 223 U/L (94-250); Phosphorous 3.4 mg/dL (2.7-4.5); Triglycerides 102 mg/dl (<150); Uric Acid 6.9 mg/dL (2.5-8.0)
[2019-10-06] MEDS: 0.9 % SODIUM CHLORIDE 250 ML IV SCH ×3 (07:23→20:41)
[2019-10-06] MEDS: 0.9 % SODIUM CHLORIDE 10 ML SYRINGE IV SCH ×3 (07:24→20:39)
[2019-10-06] MEDS ORDERED: OMEPRAZOLE 20 MG CAPSULE PO SCH (07:30)
[2019-10-06 08:15] LABS: Band Neutrophils % 7 % (0-10); Basophils % (Manual) 2 % (0-2); Lymphocytes % 14 % (15-49); Monocytes % (Manual) 5 % (1-12); Platelet Estimate NORMAL (NORMAL); RBC Morphology NORMAL (NORMAL); Segmented Neutrophils % 72 % (38-78)
[2019-10-06] MEDS ORDERED: cefTRIAXone 2 GM in DEXTROSE 5% IN WATER 50 ML IV SCH (09:00)
[2019-10-06] MEDS ORDERED: HEPARIN 5,000 UNIT/ML VIAL SQ SCH ×2 (09:00→21:00)
[2019-10-06] MEDS ORDERED: LORATADINE 10 MG TABLET PO SCH (09:00)
[2019-10-06] MEDS ORDERED: THIAMINE 100 MG TABLET PO SCH (09:00)
[2019-10-06] MEDS ORDERED: MULTIVIT,THER IRON,CA,FA & MIN 1 TABLET PO SCH (09:00)
[2019-10-06] MEDS ORDERED: DILTIAZEM 120 MG CAP.XL.24H PO SCH (09:00)
[2019-10-06] MEDS ORDERED: LISINOPRIL 20 MG TABLET PO SCH (09:00)
[2019-10-06] MEDS ORDERED: ALLOPURINOL 100 MG TABLET PO SCH (09:00)
[2019-10-06] MEDS ORDERED: FOLIC ACID 1 MG TABLET PO SCH (09:00)
[2019-10-06] MEDS ORDERED: DOCUSATE SODIUM 100 MG CAPSULE PO SCH (09:00)
[2019-10-06] MEDS ORDERED: AZITHROMYCIN 500 MG in DEXTROSE 5% IN WATER 250 ML IV SCH (10:00)
--- NOTE | 2019-10-06 10:42 | Internal Med Progress Note ---
Medical - PN: Subj Patient information: Note initiated : 10/06/19 at 10:40 am Service Date, if different from initiated Date: [] Patient: Gian Orozco a 78 y/o M admitted on 10/05/19 for syncope. Chief Complaint: [] Interval history: Mr. Orozco is a 78 year old M with a known history of CABGsMVR/A. fib who was in his baseline state of health until 3 days prior to presentation patient started noticing increasing weakness fatigue, sore throat and upper respiratory symptoms. He was evaluated at the urgent care and was discharged after supportive treatment. Patient symptoms continue to deteriorate. His heard him falling in the bathroom and discovered him in a near unconscious state. He was subsequently brought into the ER. Initial work-up was unremarkable CT angiogram head neck but consistent with elevated white count fever and possible pneumonia. Chest x-ray consistent with CHF Hospitalist service was consulted At the time evaluation patient is alert and oriented. He was able to answer mo st the question. Karen is at bedside. She was able to provide a detailed history. Patient is hard of hearing. He endorses to malaise/mild headache fatigue and lethargic. He further endorses to diarrhea but denies chest pain, cough. He denies lightheadedness. He further denies changes in medication or sick contact. Addendum Responded to nurse call with patient fatigue lethargic. Heart rate mid 30s with blood pressure systolic 78. Multiple episodes of watery stool. Patient lethargic but denies chest pain diaphoresis. 10/06-patient responded remarkably well to crystalloid challenge. Systolics around 120. Off pressors. Heart rate around mid 60s. Diltiazem held. Check digoxin level, improved creatinine level, sodium 133, INR 2.3, white count down from 14.5-9.7 - Constitutional Vitals: Vital Signs Temp Pulse Resp BP Pulse Ox 98 F 81 38 H 117/96 91 10/06/19 08:01 10/06/19 08:01 10/05/19 22:07 10/06/19 08:01 10/06/19 08:01 Period Temp Pulse Resp BP Sys/Diggs Pulse Ox Last 24 Hr 98 F-100.9 F 51-81 38-46 74-150/48-96 85-98 Intake and Output 10/05/19 10/06/19 10/06/19 21:59 05:59 13:59 Intake Total 240 1999 1240 Output Total 270 20 Balance 240 1730 1220 Weight 210 lb 1 oz Intake & Output: Intake & Output 10/05/19 10/06/19 10/06/19 21:59 05:59 13:59 Intake Total 240 1999 1240 Output Total 270 20 Balance 240 1730 1220 Weight 210 lb 1 oz Intake: IV 1999 1000 Sodium Chloride 0.9% 1,000 ml @ 2000 Wide Open IV [facility] Rx#: [id number] Lactated Ringers 1,000 ml @ 150 1000 mls/hr IV .[id number] [facility] Rx#: [id number] Oral 240 240 Output: Urine Catheter Amount 270 20 Other: Meal Lunch Percent of Meal Consumed 50% Urine Appearance Clear Clear Uretheral ([place]) Clear Urine Color Dark Yellow Bright Yellow Uretheral ([place]) Bright Yellow Urine Odor Normal Stool Size Moderate Small Stool Color Brown Brown Green Yellow Stool Consistency Liquid Liquid # Voids 1 # of times incontinent of 1 Bowels General appearance: no acute distress Exam: Alert oriented nonlabored breathing No anxiety Telemetry A. fib/bradycardia with PVCs Nondistended abdomen Medical - PN: Obj Da - Labs CBC & Chem 7: 10/06/19 04:33 10/06/19 04:33 Labs: Abnormal Lab Results 10/06/19 10/06/19 10/06/19 04:33 04:33 04:33 WBC RBC 4.24 L Hgb 12.4 L Hct 38.1 L POC Hct MPV 10.8 H Gran % Lymph % (Auto) Gran # Lymph # (Auto) Lymphocytes % 14 L POC PT PT 24.8 H POC INR INR 2.3 H Sodium Chloride Carbon Dioxide 18 L POC BUN BUN 30 H Creatinine 1.7 H POC Creatinine Glucose POC Glucose Calcium 7.4 L POC WB Ioniz Calcium C-Reactive Protein Total Protein 5.8 L Albumin 2.9 L Hyaline Casts 10/05/19 10/05/19 10/05/19 22:58 22:58 09:55 WBC 13.2 H RBC 4.37 L Hgb 12.9 L Hct 39.3 L POC Hct MPV Gran % 85.4 H Lymph % (Auto) 7.7 L Gran # 11.24 H Lymph # (Auto) 1.01 L Lymphocytes % POC PT PT 23.1 H POC INR INR 2.1 H Sodium 131 L Chloride Carbon Dioxide 20 L POC BUN BUN 30 H Creatinine 2.1 H POC Creatinine Glucose 134 H POC Glucose Calcium 7.8 L POC WB Ioniz Calcium C-Reactive Protein Total Protein Albumin Hyaline Casts 10/05/19 10/04/19 10/04/19 00:18 23:59 23:52 WBC RBC Hgb Hct POC Hct 40.0 L MPV Gran % Lymph % (Auto) Gran # Lymph # (Auto) Lymphocytes % POC PT 28.9 H PT POC INR 2.5 H INR Sodium Chloride Carbon Dioxide POC BUN 26 H BUN Creatinine POC Creatinine 1.6 H Glucose POC Glucose 122 H Calcium POC WB Ioniz Calcium 1.06 L C-Reactive Protein Total Protein Albumin Hyaline Casts 31 H 10/04/19 10/04/19 10/04/19 23:43 23:43 23:43 WBC 14.5 H RBC 4.56 L Hgb 13.3 L Hct POC Hct MPV 10.8 H Gran % 89.7 H Lymph % (Auto) 4.2 L Gran # 12.96 H Lymph # (Auto) 0.61 L Lymphocytes % POC PT PT 22.4 H POC INR INR 2.0 H Sodium 130 L Chloride 95 L Carbon Dioxide 21 L POC BUN BUN 25 H Creatinine 1.6 H POC Creatinine Glucose 130 H POC Glucose Calcium 8.3 L POC WB Ioniz Calcium C-Reactive Protein 5.7 H Total Protein Albumin Hyaline Casts Meds: Medications Acetaminophen (Tylenol) 650 mg PO Q4-6HP PRN; Protocol PRN Reason: Per Pain Protocol/Fever > 101 Allopurinol (Zyloprim) 100 mg PO QDAY [facility] Last Admin: 10/06/19 09:47 Dose: 100 mg Documented by: Bisacodyl (Dulcolax) 10 mg MN Q2-3DAYS PRN PRN Reason: Constipation Digoxin (Lanoxin) 250 mcg PO SuTuThSa@1400 [facility] Diltiazem HCl (Cardizem Cd) 120 mg PO DAILY [facility] Last Admin: 10/06/19 09:39 Dose: Not Given Documented by: Docusate Sodium (Colace) 100 mg PO BID [facility] Last Admin: 10/06/19 09:47 Dose: 100 mg Documented by: Doxazosin Mesylate (Cardura) 1 mg PO QHS [facility] Fluticasone Propionate (Flonase) 2 spray NS DAILYP PRN PRN Reason: ALLERGIES Folic Acid (Folic Acid) 1 mg PO DAILY [facility] Last Admin: 10/06/19 09:48 Dose: 1 mg Documented by: Heparin Sodium (Porcine) (Heparin) 5,000 unit SQ Q12 [facility] Last Admin: 10/06/19 09:47 Dose: 5,000 unit Documented by: Hydralazine HCl (Apresoline) 10 mg IV Q4-6HP PRN PRN Reason: Hypertension Azithromycin 500 mg/ Dextrose 250 mls @ 250 mls/hr IV Q24H [facility]; Protocol Stop: 10/07/19 10:59 Last Admin: 10/06/19 09:48 Dose: 250 mls/hr Documented by: Ceftriaxone Sodium 2 gm/ (Dextrose) 50 mls @ 100 mls/hr IV Q24H [facility]; Protocol Last Admin: 10/06/19 09:00 Dose: 100 mls/hr Documented by: Lactated Ringer's (Lactated Ringers) 1,000 mls @ 150 mls/hr IV .Q6H40M [facility] Last Admin: 10/06/19 07:21 Dose: 150 mls/hr Documented by: Magnesium Sulfate (Magnesium Sulfate) 2 gm in 50 mls @ 50 mls/hr IV UD PRN PRN Reason: MG = or < 1.7 Acetaminophen (Ofirmev) 650 mg in 65 mls @ 130 mls/hr IV Q6HP PRN; Protocol PRN Reason: Per Pain Protocol/Fever > 101 Sodium Chloride (Sodium Chloride 0.9%) 250 mls @ 20 mls/hr IV .[id number] [facility] Last Admin: 10/06/19 10:06 Dose: Not Given Documented by: Norepinephrine Bitartrate 16 (mg/ Sodium Chloride) 250 mls @ 9.375 mls/hr IV Q24HP PRN; Protocol PRN Reason: Hypotension Iron Carb/Multivit/[place]/Folic Acid (Multivitamin W/Minerals) 1 tab PO DAILY [facility] Last Admin: 10/06/19 09:48 Dose: 1 tab Documented by: Lisinopril (Zestril) 40 mg PO QDAY [facility] Last Admin: 10/06/19 09:47 Dose: 40 mg Documented by: Loratadine (Claritin) 10 mg PO QDAY [facility] Last Admin: 10/06/19 10:05 Dose: 10 mg Documented by: Melatonin (Melatonin 3mg Tablet) 3 mg PO HSP PRN PRN Reason: Insomnia Metoprolol Tartrate (Lopressor) 5 mg IV Q5M PRN PRN Reason: Heart Rate > 140 bpm Omeprazole (Prilosec) 20 mg PO QAMAC [facility] Last Admin: 10/06/19 09:47 Dose: 20 mg Documented by: Ondansetron HCl (Zofran Odt) 4 mg SL Q4-6HP PRN; Protocol PRN Reason: Nausea And Vomiting Ondansetron HCl (Zofran) 4 mg IV Q4-6HP PRN; Protocol PRN Reason: Nausea And Vomiting Polyethylene Glycol (Miralax) 17 gm PO DAILYP PRN PRN Reason: Constipation Potassium Chloride (Klor-Con) 40 meq PO DAILYP PRN PRN Reason: K+ < 3.5 Ropinirole HCl (Requip) 2 mg PO QHS [facility] Senna/Docusate Sodium (Senna Plus Tablet) 1 tab PO [facility] Sodium Chloride (Saline Flush) 10 ml IV Q8 [facility] Last Admin: 10/06/19 07:24 Dose: 10 ml Documented by: Thiamine HCl (Vitamin B1) 100 mg PO DAILY [facility] Last Admin: 10/06/19 09:48 Dose: 100 mg Documented by: Warfarin Sodium (Coumadin Per Pharmacy) 1 order PO UD [facility] Medical - PN: A/P - Time Spent With Patient Total time spent is greater than 50% in coordination of care (as documented) at patient's floor/unit and/or counseling patient: 25 - 35 minutes (1) Acute decompensated heart failure Status: Acute Assessment and plan: * Hypovolemic shock- Responded well to crystalloids. Off pressors continue close monitoring.. * Sepsis secondary to acute acquired pneumonia, white count 14,000 down to 9000. Continue antibiotic coverage * Khftjhvim-lqsstrsdp-dakmlhkm, pancultures, antibiotic coverage/supplemental oxygen bronchodilators. Await serologies * Acute decompensated heart failure, diastolic dysfunction secondary underlying A. fib, evident on imaging. Improved * Diarrhea-C. difficile negative * Bradycardia with underlying A. fib. Check digoxin level. Hold diltiazem. * Hypertension -hold antihypertensives * Restless leg syndrome continue ropinirole * Anticoagulation on Coumadin daily dosing based on INR. Therapeutic at 2.3 * History of gout continue allopurinol * GERD continue PPI * DNR * Prophylaxis anticoagulated Plan * Continue antibiotic coverage * Await serologies * Echocardiogram * Crystalloids * Prior medical condition management home meds * Coumadin dosing based on INR * PT OT/Nutrition support * Discharge planning Current Visit: Yes Medical - PN: Qual - VTE Deep Vein Thrombosis/Pulmonary Embolism Present on Admission: No
[2019-10-06] MEDS ORDERED: NOREPINEPHRINE BITARTRATE 16 MG in 0.9 % SODIUM CHLORIDE 234 ML IV PRN (10:45)
[2019-10-06] MEDS ORDERED: DIGOXIN 125 MCG TABLET PO SCH (14:00)
[2019-10-06] MEDS ORDERED: MELATONIN 3 MG TABLET PO PRN (19:54)
[2019-10-06] MEDS ORDERED: hydrALAZINE 20 MG/ML VIAL IV PRN (19:54)
[2019-10-06] MEDS ORDERED: BISACODYL 10 MG SUPP.RECT PR PRN (19:54)
[2019-10-06] MEDS ORDERED: FLUTICASONE PROPIONATE SPRAY.NAS NS PRN (19:54)
[2019-10-06] MEDS ORDERED: MAGNESIUM SULFATE 2 GM/50 ML BAG IV PRN (19:54)
[2019-10-06] MEDS ORDERED: METOPROLOL TARTRATE 5 MG/5 ML VIAL IV PRN (19:54)
[2019-10-06] MEDS ORDERED: POLYETHYLENE GLYCOL 3350 17 GM PACKET PO PRN (19:54)
[2019-10-06] MEDS ORDERED: ONDANSETRON 4 MG/2 ML VIAL IV PRN (19:54)
[2019-10-06] MEDS ORDERED: ACETAMINOPHEN 650 MG/65 ML BOTTLE IV PRN (19:54)
[2019-10-06] MEDS ORDERED: ONDANSETRON 4 MG ODT TABLET SL PRN (19:54)
[2019-10-06] MEDS ORDERED: ACETAMINOPHEN 325 MG TABLET PO PRN (19:54)
[2019-10-06] MEDS ORDERED: POTASSIUM CHLORIDE 20 MEQ PACKET PO PRN (19:54)
[2019-10-06] MEDS: DOXAZOSIN 1 MG TABLET PO SCH (20:38)
[2019-10-06] MEDS: DOCUSATE SODIUM 100 MG CAPSULE PO SCH (20:39)
[2019-10-06] MEDS: SENNOSIDES/DOCUSATE SODIUM 1 TAB TABLET PO SCH (20:39)
[2019-10-06] MEDS: rOPINIRole 1 MG TABLET PO SCH (20:39)
[2019-10-06] MEDS ORDERED: DOXAZOSIN 1 MG TABLET PO SCH (21:00)
[2019-10-06] MEDS ORDERED: WARFARIN 1 MG TABLET PO ONE (21:00)
[2019-10-06] MEDS ORDERED: rOPINIRole 1 MG TABLET PO SCH (21:00)
[2019-10-06] MEDS ORDERED: SENNOSIDES/DOCUSATE SODIUM 1 TAB TABLET PO SCH (21:00)
[2019-10-07] MEDS: 0.9 % SODIUM CHLORIDE 10 ML SYRINGE IV SCH ×2 (04:45→15:00)
[2019-10-07] MEDS: LACTATED RINGERS 1,000 ML IV SCH ×3 (04:45→12:46)
[2019-10-07] MEDS: OMEPRAZOLE 20 MG CAPSULE PO SCH (06:51)
[2019-10-07 07:04] LABS: INR 1.9 (0.9-1.1)
[2019-10-07] MEDS: 0.9 % SODIUM CHLORIDE 250 ML IV SCH ×2 (07:15→20:28)
[2019-10-07 07:19] LABS: Hematocrit 37.6 % (40.1-51.0); Hemoglobin 12.3 g/dL (13.7-17.5); Mean Cell Volume 88.7 fL (80.0-100.0); Mean Corpuscular HGB Conc 32.7 g/dL (31.0-36.0); Platelet Count 129 K/mcL (140-440); RBC 4.24 M/mcL (4.63-6.08); WBC 6.2 K/mcL (4.50-11.00)
[2019-10-07 07:23] LABS: ALT/SGPT 13 U/l (0-40); AST/SGOT 28 U/l (0-37); Albumin 3.2 gm/dL (3.2-5.2); Albumin/Globulin Ratio 1.3 (1.0-2.3); Alkaline Phosphatase 71 U/L (39-117); Bilirubin,Direct < 0.2 mg/dL (0.0-0.3); Bilirubin,Total 0.3 mg/dL (0.0-1.0); Chloride 103 mmol/L (96-108); Globulin 2.4 gm/dL (2.2-3.7); Glucose 87 mg/dL (70-105); Lactate Dehydrogenase 200 U/L (94-250); Triglycerides 130 mg/dl (<150); Uric Acid 6.8 mg/dL (2.5-8.0)
[2019-10-07 07:32] LABS: Blood Urea Nitrogen 21 mg/dl (8-23); Carbon Dioxide 22 mmol/L (22-30); Glomerular Filtration Rate 63; Phosphorous 2.1 mg/dL (2.7-4.5)
[2019-10-07] MEDS: MULTIVIT,THER IRON,CA,FA & MIN 1 TABLET PO SCH (09:30)
[2019-10-07] MEDS: THIAMINE 100 MG TABLET PO SCH (09:30)
[2019-10-07] MEDS: ALLOPURINOL 100 MG TABLET PO SCH (09:30)
[2019-10-07] MEDS: DILTIAZEM 120 MG CAP.XL.24H PO SCH (09:31)
[2019-10-07] MEDS: cefTRIAXone 2 GM in DEXTROSE 5% IN WATER 50 ML IV SCH (09:31)
[2019-10-07] MEDS: LORATADINE 10 MG TABLET PO SCH (09:31)
[2019-10-07] MEDS: LISINOPRIL 20 MG TABLET PO SCH (09:31)
[2019-10-07] MEDS: DOCUSATE SODIUM 100 MG CAPSULE PO SCH ×2 (09:31→20:29)
[2019-10-07] MEDS: FOLIC ACID 1 MG TABLET PO SCH (09:31)
[2019-10-07 09:40] LABS: Eosinophils % (Manual) 9 % (0-7); Lymphocytes % 24 % (15-49); Monocytes % (Manual) 9 % (1-12); Platelet Estimate DECREASED (NORMAL); RBC Morphology NORMAL (NORMAL); Segmented Neutrophils % 58 % (38-78)
--- NOTE | 2019-10-07 09:52 | Internal Med Progress Note ---
Medical - PN: Subj Patient information: Note initiated : 10/07/19 at 9:48 am Service Date, if different from initiated Date: [] Patient: Gian Orozco a 78 y/o M admitted on 10/05/19 for syncope. Chief Complaint: [] Interval history: Mr. Orozco is a 78 year old M with a known history of CABGsMVR/A. fib who was in his baseline state of health until 3 days prior to presentation patient started noticing increasing weakness fatigue, sore throat and upper respiratory symptoms. He was evaluated at the urgent care and was discharged after supportive treatment. Patient symptoms continue to deteriorate. His heard him falling in the bathroom and discovered him in a near unconscious state. He was subsequently brought into the ER. Initial work-up was unremarkable CT angiogram head neck but consistent with elevated white count fever and possible pneumonia. Chest x-ray consistent with CHF Hospitalist service was consulted At the time evaluation patient is alert and oriented. He was able to answer mos t the question. Karen is at bedside. She was able to provide a detailed history. Patient is hard of hearing. He endorses to malaise/mild headache fatigue and lethargic. He further endorses to diarrhea but denies chest pain, cough. He denies lightheadedness. He further denies changes in medication or sick contact. Addendum Responded to nurse call with patient fatigue lethargic. Heart rate mid 30s with blood pressure systolic 78. Multiple episodes of watery stool. Patient lethargic but denies chest pain diaphoresis. 10/06-patient responded remarkably well to crystalloid challenge. Systolics around 120. Off pressors. Heart rate around mid 60s. Diltiazem held. Check digoxin level, improved creatinine level, sodium 133, INR 2.3, white count down from 14.5-9.7 10/07-patient clinically improved. White count down to 6.2. Diarrhea much improved. Son at bedside. Able to ambulate. Denies dizziness lightheadedness, INR 1.9, sodium improved to 138, creatinine down to 1.1 from 2.1. Continue existing treatment and possible discharge in 24 hours - Constitutional Vitals: Vital Signs Temp Pulse Resp BP Pulse Ox 98.3 F 71 18 162/62 95 10/07/19 08:06 10/07/19 08:06 10/07/19 08:06 10/07/19 08:06 10/07/19 08:06 Period Temp Pulse Resp BP Sys/Diggs Pulse Ox Last 24 Hr 97.2 F-98.3 F 66-104 125-162/56-124 95-99 Intake and Output 10/06/19 10/07/19 10/07/19 21:59 05:59 13:59 Intake Total 1240 995 Output Total 1950 Balance -710 995 Weight 219 lb Intake & Output: Intake & Output 10/06/19 10/07/19 10/07/19 21:59 05:59 13:59 Intake Total 1240 995 Output Total 1950 Balance -710 995 Weight 219 lb Intake: IV 1000 995 Lactated Ringers 1,000 ml @ 150 1000 995 mls/hr IV .Q6H40M [facility] Rx#: [id number] Oral 240 Output: Urine Catheter Amount 1950 Other: Urine Appearance Clear Uretheral (Gooden) Clear Urine Color Dark Yellow Uretheral (Gooden) Bright Yellow Urine Odor Normal Stool Size Moderate Stool Color Brown Stool Consistency Soft Loose # of times incontinent of 1 Bowels General appearance: no acute distress Exam: Alert oriented nonlabored breathing Nondistended abdomen No anxiety No lymphedema Medical - PN: Obj Da - Labs CBC & Chem 7: 10/07/19 05:00 10/07/19 05:00 Labs: Abnormal Lab Results 10/07/19 10/07/19 10/07/19 05:00 05:00 05:00 WBC RBC 4.24 L Hgb 12.3 L Hct 37.6 L POC Hct Plt Count 129 L MPV 11.0 H Gran % Lymph % (Auto) Gran # Lymph # (Auto) Lymphocytes % Eosinophils % (Manual) 9 H Platelet Estimate Decreased A POC PT PT 22.0 H POC INR INR 1.9 H Sodium Chloride Carbon Dioxide POC BUN BUN Creatinine POC Creatinine Glucose POC Glucose Calcium 8.0 L POC WB Ioniz Calcium Phosphorus 2.1 L C-Reactive Protein Total Protein 5.6 L Albumin Hyaline Casts 10/06/19 10/06/19 10/06/19 04:33 04:33 04:33 WBC RBC 4.24 L Hgb 12.4 L Hct 38.1 L POC Hct Plt Count MPV 10.8 H Gran % Lymph % (Auto) Gran # Lymph # (Auto) Lymphocytes % 14 L Eosinophils % (Manual) Platelet Estimate POC PT PT 24.8 H POC INR INR 2.3 H Sodium Chloride Carbon Dioxide 18 L POC BUN BUN 30 H Creatinine 1.7 H POC Creatinine Glucose POC Glucose Calcium 7.4 L POC WB Ioniz Calcium Phosphorus C-Reactive Protein Total Protein 5.8 L Albumin 2.9 L Hyaline Casts 10/05/19 10/05/19 10/05/19 22:58 22:58 09:55 WBC 13.2 H RBC 4.37 L Hgb 12.9 L Hct 39.3 L POC Hct Plt Count MPV Gran % 85.4 H Lymph % (Auto) 7.7 L Gran # 11.24 H Lymph # (Auto) 1.01 L Lymphocytes % Eosinophils % (Manual) Platelet Estimate POC PT PT 23.1 H POC INR INR 2.1 H Sodium 131 L Chloride Carbon Dioxide 20 L POC BUN BUN 30 H Creatinine 2.1 H POC Creatinine Glucose 134 H POC Glucose Calcium 7.8 L POC WB Ioniz Calcium Phosphorus C-Reactive Protein Total Protein Albumin Hyaline Casts 10/05/19 10/04/19 10/04/19 00:18 23:59 23:52 WBC RBC Hgb Hct POC Hct 40.0 L Plt Count MPV Gran % Lymph % (Auto) Gran # Lymph # (Auto) Lymphocytes % Eosinophils % (Manual) Platelet Estimate POC PT 28.9 H PT POC INR 2.5 H INR Sodium Chloride Carbon Dioxide POC BUN 26 H BUN Creatinine POC Creatinine 1.6 H Glucose POC Glucose 122 H Calcium POC WB Ioniz Calcium 1.06 L Phosphorus C-Reactive Protein Total Protein Albumin Hyaline Casts 31 H 10/04/19 10/04/19 10/04/19 23:43 23:43 23:43 WBC 14.5 H RBC 4.56 L Hgb 13.3 L Hct POC Hct Plt Count MPV 10.8 H Gran % 89.7 H Lymph % (Auto) 4.2 L Gran # 12.96 H Lymph # (Auto) 0.61 L Lymphocytes % Eosinophils % (Manual) Platelet Estimate POC PT PT 22.4 H POC INR INR 2.0 H Sodium 130 L Chloride 95 L Carbon Dioxide 21 L POC BUN BUN 25 H Creatinine 1.6 H POC Creatinine Glucose 130 H POC Glucose Calcium 8.3 L POC WB Ioniz Calcium Phosphorus C-Reactive Protein 5.7 H Total Protein Albumin Hyaline Casts Meds: Medications Acetaminophen (Tylenol) 650 mg PO Q4-6HP PRN; Protocol PRN Reason: Per Pain Protocol/Fever > 101 Allopurinol (Zyloprim) 100 mg PO QDAY [facility] Last Admin: 10/07/19 09:30 Dose: 100 mg Documented by: Bisacodyl (Dulcolax) 10 mg TN Q2-3DAYS PRN PRN Reason: Constipation Digoxin (Lanoxin) 250 mcg PO SuTuThSa@1400 [facility] Diltiazem HCl (Cardizem Cd) 120 mg PO DAILY [facility] Last Admin: 10/07/19 09:31 Dose: 120 mg Documented by: Docusate Sodium (Colace) 100 mg PO BID [facility] Last Admin: 10/07/19 09:31 Dose: Not Given Documented by: Doxazosin Mesylate (Cardura) 1 mg PO QHS [facility] Last Admin: 10/06/19 20:38 Dose: 1 mg Documented by: Fluticasone Propionate (Flonase) 2 spray NS DAILYP PRN PRN Reason: ALLERGIES Folic Acid (Folic Acid) 1 mg PO DAILY [facility] Last Admin: 10/07/19 09:31 Dose: 1 mg Documented by: Hydralazine HCl (Apresoline) 10 mg IV Q4-6HP PRN PRN Reason: Hypertension Azithromycin 500 mg/ Dextrose 250 mls @ 250 mls/hr IV Q24H [facility]; Protocol Stop: 10/07/19 10:59 Ceftriaxone Sodium 2 gm/ (Dextrose) 50 mls @ 100 mls/hr IV Q24H [facility]; Protocol Last Admin: 10/07/19 09:31 Dose: 100 mls/hr Documented by: Lactated Ringer's (Lactated Ringers) 1,000 mls @ 150 mls/hr IV .Q6H40M [facility] Last Admin: 10/07/19 04:45 Dose: 150 mls/hr Documented by: Magnesium Sulfate (Magnesium Sulfate) 2 gm in 50 mls @ 50 mls/hr IV UD PRN PRN Reason: MG = or < 1.7 Sodium Chloride (Sodium Chloride 0.9%) 250 mls @ 20 mls/hr IV .[id number] [facility] Last Admin: 10/07/19 07:15 Dose: Not Given Documented by: Acetaminophen (Ofirmev) 650 mg in 65 mls @ 130 mls/hr IV Q6HP PRN; Protocol PRN Reason: Per Pain Protocol/Fever > 101 Iron Carb/Multivit/Meade/Folic Acid (Multivitamin W/Minerals) 1 tab PO DAILY [facility] Last Admin: 10/07/19 09:30 Dose: 1 tab Documented by: Lisinopril (Zestril) 40 mg PO QDAY [facility] Last Admin: 10/07/19 09:31 Dose: 40 mg Documented by: Loratadine (Claritin) 10 mg PO QDAY [facility] Last Admin: 10/07/19 09:31 Dose: 10 mg Documented by: Melatonin (Melatonin 3mg Tablet) 3 mg PO HSP PRN PRN Reason: Insomnia Last Admin: 10/06/19 21:10 Dose: 3 mg Documented by: Metoprolol Tartrate (Lopressor) 5 mg IV Q5M PRN PRN Reason: Heart Rate > 140 bpm Omeprazole (Prilosec) 20 mg PO QAMAC [facility] Last Admin: 10/07/19 06:51 Dose: 20 mg Documented by: Ondansetron HCl (Zofran Odt) 4 mg SL Q4-6HP PRN; Protocol PRN Reason: Nausea And Vomiting Ondansetron HCl (Zofran) 4 mg IV Q4-6HP PRN; Protocol PRN Reason: Nausea And Vomiting Polyethylene Glycol (Miralax) 17 gm PO DAILYP PRN PRN Reason: Constipation Potassium Chloride (Klor-Con) 40 meq PO DAILYP PRN PRN Reason: K+ < 3.5 Ropinirole HCl (Requip) 2 mg PO QHS [facility] Last Admin: 10/06/19 20:39 Dose: 2 mg Documented by: Senna/Docusate Sodium (Senna Plus Tablet) 1 tab PO HS [facility] Last Admin: 10/06/19 20:39 Dose: Not Given Documented by: Sodium Chloride (Saline Flush) 10 ml IV Q8 [facility] Last Admin: 10/07/19 04:45 Dose: 10 ml Documented by: Thiamine HCl (Vitamin B1) 100 mg PO DAILY [facility] Last Admin: 10/07/19 09:30 Dose: 100 mg Documented by: Warfarin Sodium (Coumadin Per Pharmacy) 1 order PO UD [facility] Medical - PN: A/P - Time Spent With Patient Total time spent is greater than 50% in coordination of care (as documented) at patient's floor/unit and/or counseling patient: 25 - 35 minutes (1) Acute decompensated heart failure Status: Acute Assessment and plan: * Community-acquired pneumonia- pancultures negative so far, clinically improved antibiotic coverage * Sepsis secondary to acute acquired pneumonia, white count normalized * Acute renal failure-prerenal secondary to volume depletion secondary diarrhea. Creatinine improved from 2.1-1.1 with aggressive crystalloids * Acute decompensated heart failure, diastolic dysfunction secondary underlying A. fib, evident on imaging. Clinically resolved * Diarrhea-C. difficile negative. Clinically resolved * Hypovolemic shock- Responded to crystalloids. Off pressors * Bradycardia with underlying A. fib. Digoxin level 1. Restart diltia zem/digoxin. * Hypertension -continue antihypertensives * Restless leg syndrome continue ropinirole * Anticoagulation on Coumadin daily dosing based on INR. Therapeutic at 2.3 * History of gout continue allopurinol * GERD continue PPI * DNR * Prophylaxis anticoagulated Plan * Continue antibiotic coverage * Restart antihypertensive/digoxin and diltiazem * Prior medical condition management home meds * Continue Coumadin dosing based on INR * PT OT/Nutrition support * Discharge likely in 24 hours Current Visit: Yes Medical - PN: Qual - VTE Deep Vein Thrombosis/Pulmonary Embolism Present on Admission: No
[2019-10-07] MEDS ORDERED: AZITHROMYCIN 500 MG in DEXTROSE 5% IN WATER 250 ML IV SCH (10:00)
[2019-10-07] MEDS ORDERED: WARFARIN 2.5 MG TABLET PO ONE (14:00)
[2019-10-07] MEDS: rOPINIRole 1 MG TABLET PO SCH (20:28)
[2019-10-07] MEDS: DOXAZOSIN 1 MG TABLET PO SCH (20:28)
[2019-10-07] MEDS: SENNOSIDES/DOCUSATE SODIUM 1 TAB TABLET PO SCH (20:29)
[2019-10-08] MEDS: 0.9 % SODIUM CHLORIDE 10 ML SYRINGE IV SCH ×2 (03:30→04:02)
[2019-10-08 06:47] LABS: Hematocrit 36.6 % (40.1-51.0); Mean Cell Volume 87.8 fL (80.0-100.0); Mean Corpuscular HGB Conc 32.8 g/dL (31.0-36.0); Mean Platelet Volume 10.7 fL (7.4-10.4); Platelet Count 146 K/mcL (140-440); RBC 4.17 M/mcL (4.63-6.08); Red Cell Distribution Width 13.7 % (11.5-14.5); WBC 5.7 K/mcL (4.50-11.00)
[2019-10-08 06:52] LABS: INR 1.7 (0.9-1.1); Prothrombin Time 20.3 sec (11.9-14.5)
[2019-10-08] MEDS: OMEPRAZOLE 20 MG CAPSULE PO SCH (07:21)
[2019-10-08 07:22] LABS: ALT/SGPT 20 U/l (0-40); AST/SGOT 33 U/l (0-37); Albumin 3.3 gm/dL (3.2-5.2); Albumin/Globulin Ratio 1.3 (1.0-2.3); Alkaline Phosphatase 80 U/L (39-117); Bilirubin,Direct < 0.2 mg/dL (0.0-0.3); Bilirubin,Total 0.4 mg/dL (0.0-1.0); Blood Urea Nitrogen 13 mg/dl (8-23); Calcium 8.4 mg/dl (8.6-10.4); Carbon Dioxide 23 mmol/L (22-30); Chloride 102 mmol/L (96-108); Globulin 2.6 gm/dL (2.2-3.7); Glomerular Filtration Rate 80; Glucose 91 mg/dL (70-105); Lactate Dehydrogenase 227 U/L (94-250); Triglycerides 110 mg/dl (<150); Uric Acid 6.8 mg/dL (2.5-8.0)
[2019-10-08 07:26] LABS: Phosphorous 2.3 mg/dL (2.7-4.5)
[2019-10-08] MEDS: FOLIC ACID 1 MG TABLET PO SCH (08:39)
[2019-10-08] MEDS: ALLOPURINOL 100 MG TABLET PO SCH (08:39)
[2019-10-08] MEDS: MULTIVIT,THER IRON,CA,FA & MIN 1 TABLET PO SCH (08:40)
[2019-10-08] MEDS: cefTRIAXone 2 GM in DEXTROSE 5% IN WATER 50 ML IV SCH (08:40)
[2019-10-08] MEDS: DOCUSATE SODIUM 100 MG CAPSULE PO SCH (08:40)
[2019-10-08] MEDS: LISINOPRIL 20 MG TABLET PO SCH (08:40)
[2019-10-08] MEDS: DILTIAZEM 120 MG CAP.XL.24H PO SCH (08:40)
[2019-10-08] MEDS: LORATADINE 10 MG TABLET PO SCH (08:40)
[2019-10-08] MEDS: THIAMINE 100 MG TABLET PO SCH (08:40)
[2019-10-08 09:32] LABS: Basophils % (Manual) 1 % (0-2); Eosinophils % (Manual) 3 % (0-7); Lymphocytes % 14 % (15-49); Monocytes % (Manual) 7 % (1-12); Platelet Estimate NORMAL (NORMAL); RBC Morphology NORMAL (NORMAL); Segmented Neutrophils % 75 % (38-78)
--- NOTE | 2019-10-08 09:39 | Discharge Summary ---
Medical - DS: Prov Patient information: Note initiated : 10/08/19 at 9:36 am Service Date, if different from initiated Date: [] Patient: Gian Orozco 78 y/o M admitted on 10/05/19 for syncope. Chief Complaint: [] Date of admission: 10/05/19 02:18 Discharge date: 10/08/19 Primary care physician: Jarvis Miramontes M.D., F.A.A.F.P. Consults: 10/05/19 01:53 Consult to Physician [CONS] Stat Comment: Consulting Provider: Vicente Cantu Reason For Exam: Physician to Consult Medical - DS: Meds - Discharge Medications Prescriptions: Cefdinir 300 mg PO BID #10 cap Prescription Printed Active and Home Medications: Home Medications digoxin 250 mcg (0.25 mg) tablet 250 mcg PO .QTues, Mary, Sat, Sun tab 01/28/16 [History Confirmed 10/04/19 Last Taken Unknown] furosemide 40 mg tablet 40 mg PO QDAY #90 tab 06/14/16 [Rx Confirmed 10/04/19 Last Taken Unknown] warfarin 1 tab PO QDAY 06/16/17 [History Confirmed 10/04/19 Last Taken Unknown] doxazosin 1 mg tablet 1 mg PO QHS tab 03/25/19 [History Confirmed 10/04/19 Last Taken Unknown] allopurinol 100 mg tablet 100 mg PO QDAY #90 tab 05/07/19 [Rx Confirmed 10/04/19 Last Taken Unknown] omeprazole 20 mg capsule,delayed release See Rx Instructions .ROUTE .COMPLEX #90 capsule 05/07/19 [Rx Confirmed 10/04/19 Last Taken Unknown] loratadine 10 mg tablet 10 mg PO QDAY 05/09/19 [History Confirmed 10/04/19 Last Taken Unknown] diltiazem HCl 120 mg capsule,24 hr,extended release 120 mg PO QDAY #90 cap 05/30/19 [Rx Confirmed 10/04/19 Last Taken Unknown] ropinirole 1 mg tablet 2 mg PO QHS #180 tab 08/23/19 [Rx Confirmed 10/04/19 Last Taken Unknown] enalapril maleate 20 mg tablet 40 mg PO QDAY #180 tab 09/24/19 [Rx Confirmed 10/04/19 Last Taken Unknown] cedmkjpjewtefry-dhazaccmydsvopb-GN 2 mg-30 mg-10 mg/5 mL oral syrup 10 ml PO Q6H PRN #120 ml 10/04/19 [Rx Confirmed 10/04/19 Last Taken Unknown] fluticasone propionate 50 mcg/actuation nasal spray,suspension 2 spray INTRANASAL QDAY #15.8 ml 10/04/19 [Rx Confirmed 10/04/19 Last Taken Unknown] Cefdinir 300 mg PO BID #10 cap 10/08/19 [Rx Last Taken Unknown] Medical - DS: Hosp Hospital Course: Discharge diagnosis * Community-acquired pneumonia-clinically improved noted on antibiotic coverage. Continue additional 5 days oral third-generation cephalosporin. Cultures negative so far. * Sepsis secondary to community acquired pneumonia, clinically resolved. White count normalized. * Acute renal failure-prerenal secondary to volume depletion. Creatinine improved from 2.1->0.9 with aggressive crystalloids * Acute decompensated heart failure, diastolic dysfunction secondary underlying A. fib, evident on imaging. Clinically resolved * Diarrhea-C. difficile negative. Clinically resolved * Hypovolemic shock-clinically resolved. * Bradycardia with underlying A. fib. Continue diltiazem/digoxin. * Hypertension -stable on antihypertensives * Restless leg syndrome managed on ropinirole * Anticoagulation on Coumadin daily dosing based on INR. INR 1.7. Continue Coumadin dosing based on INR as outpatient * History of gout continue allopurinol * GERD continue PPI Brief hospital course Mr. Orozco is a 78 year old M with a known history of CABGsMVR/A. fib who was in his baseline state of health until 3 days prior to presentation patient started noticing increasing weakness fatigue, sore throat and upper respiratory symptoms. He was evaluated at the urgent care and was discharged after supportive treatment. Patient symptoms continue to deteriorate. His heard him falling in the bathroom and discovered him in a near unconscious state. He was subsequently brought into the ER. Initial work-up was unremarkable CT angiogram head neck but consistent with elevated white count fever and possible pneumonia. Chest x-ray consistent with CHF Hospitalist service was consulted At the time evaluation patient is alert and oriented. He was able to answer most the question. Karen is at bedside. She was able to provide a detailed history. Patient is hard of hearing. He endorses to malaise/mild headache fatigue and lethargic. He further endorses to diarrhea but denies chest pain, cough. He denies lightheadedness. He further denies changes in medication or sick contact. Addendum Responded to nurse call with patient fatigue lethargic. Heart rate mid 30s with blood pressure systolic 78. Multiple episodes of watery stool. Patient lethargic but denies chest pain diaphoresis. 10/06-patient responded remarkably well to crystalloid challenge. Systolics around 120. Off pressors. Heart rate around mid 60s. Diltiazem held. Check digoxin level, improved creatinine level, sodium 133, INR 2.3, white count down from 14.5-9.7 10/07-patient clinically improved. White count down to 6.2. Diarrhea much improved. Son at bedside. Able to ambulate. Denies dizziness lightheadedness, INR 1.9, sodium improved to 138, creatinine down to 1.1 from 2.1. Continue ex isting treatment and possible discharge in 24 hours 10/08-patient discharging home. No overnight events. No concerns per staff. Ambulating. Tolerating diet. No active concerns. Discharge instruction as below. Discharge diagnosis: . - Time Spent with Patient Total time spent providing and/or coordinating discharge services: Greater than 30 minutes Medical - DS: Exam - Constitutional Vitals: Vital Signs Temp Pulse Resp BP BP Pulse Ox 10/08/19 06:44 97.5 F 78 24 H 178/70 95 10/08/19 03:33 98.1 F 81 22 138/58 93 10/07/19 23:16 97.9 F 76 20 175/81 96 10/07/19 19:16 22 94 10/07/19 18:34 98.0 F 78 22 175/74 93 10/07/19 16:00 97.7 F 54 L 22 160/80 94 10/07/19 12:00 97.8 F 80 18 151/80 95 Intake and Output 10/07/19 10/08/19 10/08/19 21:59 05:59 13:59 Intake Total 480 540 50 Output Total 1 Balance 479 540 50 Intake: IV 50 Rocephin 2 gm In Dextrose 5% in 50 Water 50 ml @ 100 mls/hr IV Q24H [facility] Rx#:[id number] Oral 480 540 Output: # of times incontinent of urine 1 Other: Meal Dinner Urine Appearance Clear # Voids 1 Weight 219 lb 220 lb 1.6 oz Medical - DS: Data Labs on day of discharge: Labs from last 24 hours 10/08/19 10/08/19 10/08/19 05:25 05:25 05:25 WBC 5.7 RBC 4.17 L Hgb 12.0 L Hct 36.6 L MCV 87.8 MCH 28.8 MCHC 32.8 RDW 13.7 Plt Count 146 MPV 10.7 H Total Counted 100 Seg Neutrophils % 75 Band Neutrophils % Not Reportable Lymphocytes % 14 L Monocytes % (Manual) 7 Eosinophils % (Manual) 3 Basophils % (Manual) 1 Differential Comment Platelet Estimate Normal RBC Morphology Normal PT 20.3 H INR 1.7 H Sodium 137 Potassium 3.8 Chloride 102 Carbon Dioxide 23 Anion Gap 12.0 BUN 13 Creatinine 0.9 GFR Calculation 80 Glucose 91 Uric Acid 6.8 Calcium 8.4 L Phosphorus 2.3 L Magnesium 2.0 Total Bilirubin 0.4 Direct Bilirubin < 0.2 GGT 15 AST 33 ALT 20 Alkaline Phosphatase 80 Lactate Dehydrogenase 227 Total Protein 5.9 Albumin 3.3 Globulin 2.6 Albumin/Globulin Ratio 1.3 Triglycerides 110 10/07/19 05:00 WBC RBC Hgb Hct MCV MCH MCHC RDW Plt Count MPV Total Counted 100 Seg Neutrophils % 58 Band Neutrophils % Lymphocytes % 24 Monocytes % (Manual) 9 Eosinophils % (Manual) 9 H Basophils % (Manual) Differential Comment Giant platelets seen Platelet Estimate Decreased A RBC Morphology Normal PT INR Sodium Potassium Chloride Carbon Dioxide Anion Gap BUN Creatinine GFR Calculation Glucose Uric Acid Calcium Phosphorus Magnesium Total Bilirubin Direct Bilirubin GGT AST ALT Alkaline Phosphatase Lactate Dehydrogenase Total Protein Albumin Globulin Albumin/Globulin Ratio Triglycerides Preliminary micro results at discharge 10/05/19 01:50 Blood Culture - Preliminary Blood 10/05/19 01:50 Blood Culture - Preliminary Blood Medical - DS: A/P - Patient/Caregiver Discharge Instructions Activity: increase activity as tolerated Diet: Regular Diet Additional Instructions: Activity: increase activity as tolerated Diet: Regular Diet All meals in chair, sitting upright at 90 degrees, to prevent aspiration. Follow-up PCP in 5 days. I recommend primary care physician to check INR, CBC, BMP, UA as a posthospital follow-up in 1 week. Antibiotics for additional 5 days. Continue aggressive bowel regimen to prevent constipation. Continue fall precautions. Return to ER if worsening fever chills shortness of breath, diarrhea, bleeding. Review risk and side effect profile of medications including antibiotics. Side effect may include mild to severe reaction including rash, diarrhea, C-Diff and even which can be prevented by close follow-up with PCP and monitoring for side effects. Prescriptions: Cefdinir 300 mg PO BID #10 cap Prescription Printed - Problem Maintenance (1) Acute decompensated heart failure Status: Acute - Follow up Plan Follow up with: Jarvis Miramontes MD, FAAFP [Primary Care Provider] - 10/16/19 10:45 am Disposition: Home, Self-Care Care Plan Goals: This discharge packet is provided to you to help keep you informed about your care. We want to ensure you get everything you need when you go home. You will also be receiving a call from us in a few days to follow up with you and see how you are doing since your discharge. This gives us a chance to listen to any concerns you maybe experiencing since you were discharged or any additional needs you may have, as well as providing us feedback on your care experience. We strive to always provide excellent care and thank you for your feedback and for choosing [facility]. Prognosis: Fair Rehab Potential: Fair I certify that the patient requires SNF services: No Overall status at discharge: patient is progressing back to baseline Medical - DS: Qual - VTE Deep Vein Thrombosis/Pulmonary Embolism Present on Admission: No
[2019-10-08] MEDS ORDERED: WARFARIN 2.5 MG TABLET PO ONE (14:00)
[2019-10-08] MEDS ORDERED: DIGOXIN 125 MCG TABLET PO SCH (14:00)
== END 2019-10-08 11:35 | disposition home or self-care (01) | DRG 871 ==
LOC: ED 23:17 → MEDSUR 10-05 02:18 → ICU 10-05 22:34 → MEDSUR 10-06 21:14
PROVIDERS: ADMIT Internal Medicine; ATTEND Internal Medicine